=== PATIENT | female | born 1955 | race Two or more races ===

== ENCOUNTER 2018-12-19 11:56 | Outpatient (CLI) | payer OTHER | END 2018-12-19 12:13 | disposition home or self-care (01) | LOC: RAD 11:56 | DX: M54.5 Low back pain (principal); M43.27 Fusion of spine, lumbosacral region; G89.4 Chronic pain syndrome; M25.552 Pain in left hip; M25.551 Pain in right hip ==

== ENCOUNTER → 2019-01-24 | Outpatient (CLI) | payer OTHER | END | disposition home or self-care (01) | LOC: MAMO-SONO 07:47 | DX: N60.11 Diffuse cystic mastopathy of right breast (principal); N60.12 Diffuse cystic mastopathy of left breast; Z12.31 Encounter for screening mammogram for malignant neoplasm of breast ==

== ENCOUNTER 2021-03-15 04:33 | Inpatient (IN) | payer OTHER ==
[~2021-03-15] VITALS: Ht 160 cm; Wt 71.7 kg
[2021-03-15] MEDS ORDERED: ECOTRIN81 MG (05:33)
--- NOTE | 2021-03-15 06:46 | NUR ---
0458 SE RECIBE FEMINA DE 65 ANOS DE EDAD ALERTA Y DESORIENTADA. SE OBSERVA PACIENTE CON DIFICULTAD RESPIRATORIA, SATURANDO 82% OXIGENO MANUAL. SE UBICA EN UNIDAD DE CRITICO EN CAMA #2. SE CONECTA A MONITOR CARDIACO Y OXIMETRIA DE PULSO. MIS. LANNY REALIZA CANALIZACIONES Y MUESTRAS DE ISHAAN BAJO MEDIDAS ASEPTICAS. 0500 LUEGO DE ADMINISTRAR ROMAZICOM Y NARCAN ORDENADO POR PACIENTE REACCIONA MEJOR Y PUEDE HABLAR CON MAS FLUIDEZ. SE INSERTA SONDA URINARIA ORDENADA VERBALMENTE POR DR. MURPHY. 0520 PACIENTE CON HIPOTENSION. SE NOTIFICO A DR. MURPHY QUIEN ORDENA ADMINISTRAR PUSH DE 500ML DE NSS FULL DRIP. 0530 LE REALIZARON ABG ORDENADO POR Y PERSONAL DE TERAPIA RESPIRATORIA OFRECIO TERAPIAS RESPIRATORIA ORDENADAS POR . 0600 SE ADMINISTRA MEDICAMENTO ORDENADO POR . 0620 PACIENTE CON BP MANUAL 80/50MMHG. SENOMTIFICO A DR. MURPHY EL CUAL REFIRIO ADMINISTRAR 500ML DE NSS FULL DRIP ADICIONAL. [address] DE PECHO ORDENADO POR .
--- NOTE | 2021-03-15 08:01 | NUR ---
SE NOTIFICA ORDEN A TERAPIA RESPIRATORIA PARA PACIENTE EN UBIDAD DE CRITICO.
--- NOTE | 2021-03-15 08:02 | NUR ---
SE NOTIFICA CT DE COSME A SECRETARIA DE TURNO Y CONSULTA CON ALMITA CHAVEZ.
--- NOTE | 2021-03-15 09:43 | NUR ---
SE RECIBE PTE. ALERTA Y ORIENTADA EN WYATT DAVID ESFERAS. SE OBSERVA PTE. EN CAMA CON BARANDAS ELEVADAS Y BAJA POR SEGURIDAD. CONECTADA A MONITOR CARDIACO Y OXIMETRIA CONTINUA. CANULA NASAL A 3 LITROS POR HORA. CANALIZADA CON 2 EN PERIFERAL RT PATENTE. AREAS DE VENOPUNCION BALJINDER DE EDEMA Y ERITEMA. BELCHER CATHETER #16 DEL 03/15/21 DRENANDO A GRAVEDAD ORINA AMARILLA. SE ADMINISTRAN MEDICAMENTOS OLIVIA ORDEN MEDICA. SE MANTIENE BAJO OBSERVACION POR CAMBIOS SIGNIFICATIVOS. PEND CONSULTA DRA. CHAVEZ
[2021-03-18] MEDS ORDERED: AMOX1TAB5 PO (13:02)
== END 2021-03-18 14:08 | disposition home or self-care (01) | DRG 917 ==
LOC: ER 04:33 → MEDI 10:19
PROVIDERS: ADMIT Internal Medicine; ATTEND Internal Medicine
PROC: 3E0F7SF Introduction of Other Gas into Respiratory Tract, Via Natural or Artificial Opening (ICD-10-PCS; principal; 2021-03-15)
PROC: 3E0F7GC Introduction of Other Therapeutic Substance into Respiratory Tract, Via Natural or Artificial Opening (ICD-10-PCS; 2021-03-15)
PROC: B020ZZZ Computerized Tomography (CT Scan) of Brain (ICD-10-PCS; 2021-03-17)
DX: T40.3X4A Poisoning by methadone, undetermined, initial encounter (principal); J69.8 Pneumonitis due to inhalation of other solids and liquids; R06.03 Acute respiratory distress; R09.02 Hypoxemia; I10 Essential (primary) hypertension; Z20.822 Contact with and (suspected) exposure to COVID-19